=== PATIENT | male | born 1960 | race African-American/Black ===

== ENCOUNTER 2023-11-01 07:01 | Emergency (ER) | payer MEDICAID ==
[~2023-11-01] VITALS: Ht 175.3 cm; Wt 81.6 kg
[2023-11-01 07:12] VITALS: TEMP 98.1
[2023-11-01 09:36] VITALS: BP 129/80; O2SAT 99
== END 2023-11-01 09:37 | disposition home or self-care (01) ==
LOC: ER 07:08
DX: S30.1XXA Contusion of abdominal wall, initial encounter (principal); S00.81XA Abrasion of other part of head, initial encounter; R51.9 Headache, unspecified; Y08.89XA Assault by other specified means, initial encounter; Y93.89 Activity, other specified; Y92.89 Other specified places as the place of occurrence of the external cause; Y99.8 Other external cause status
CPT/HCPCS: 99284; 71250; 70450; 74176; A6403

== ENCOUNTER 2023-11-03 11:40 | Emergency (ER) | payer MEDICAID ==
[~2023-11-03] VITALS: Ht 175.3 cm; Wt 79.4 kg
[2023-11-03 11:57] VITALS: TEMP 98.1
--- NOTE | 2023-11-03 12:00 | NUR ---
REQUESING WOUND CHECK AND DRESSING CHANGE. FOREHEAD INJURY LAST FRIDAY
--- NOTE | 2023-11-03 13:10 | NUR ---
WOUND CARE DONE
--- NOTE | 2023-11-03 13:20 | NUR ---
Patient discharged to home in stable condition. Written and verbal after care instructions given. Patient verbalizes understanding of instruction.
[2023-11-03 13:21] VITALS: BP 127/79; O2SAT 94
== END 2023-11-03 13:22 | disposition home or self-care (01) ==
LOC: ER 11:46
DX: S00.81XD Abrasion of other part of head, subsequent encounter (principal); Z48.00 Encounter for change or removal of nonsurgical wound dressing; X58.XXXD Exposure to other specified factors, subsequent encounter

== ENCOUNTER 2024-03-22 13:21 | Emergency (ER) | payer MEDICAID, OTHER ==
[~2024-03-22] VITALS: Ht 175.3 cm; Wt 79.4 kg
[2024-03-22 18:27] LABS: BASOPHILS % (AUTO) 0.6 % (0.0-2.0); EOSINOPHILS # (AUTO) 0.2 K/uL (0.0-0.7); EOSINOPHILS % (AUTO) 3.3 % (0.0-6.0); HEMATOCRIT 42 % (39-51); HEMOGLOBIN 13.7 g/dL (13.5-17.5); LYMPHOCYTES # (AUTO) 1.6 K/uL (0.8-4.8); LYMPHOCYTES % (AUTO) 27.8 % (20.0-44.0); MEAN CORPUSCULAR HEMOGLOBIN 27 PG (26.0-33.0); MEAN CORPUSCULAR HGB CONC 33 g/dl (31.0-36.0); MEAN CORPUSCULAR VOLUME 81 fL (80-96); MONOCYTES # (AUTO) 0.5 K/uL (0.1-1.30); MONOCYTES % (AUTO) 8.7 % (2.0-12.0); NEUTROPHILS # (AUTO) 3.3 K/uL (1.8-8.9); NEUTROPHILS % (AUTO) 59.6 % (43.0-81.0); PLATELET COUNT (AUTO) 211 K/uL (150-450); RED BLOOD CELL COUNT(AUTO) 5.16 MIL/uL (4.5-6.0); RED CELL DISTRIBUTION WIDTH 15.2 % (11.5-15.0); WHITE BLOOD COUNT (AUTO) 5.6 K/uL (4.3-11.0)
[2024-03-22 18:34] LABS: CALCIUM, SERUM 9.2 mg/dL (8.5-10.1); POTASSIUM 4.4 mmol/L (3.5-5.1)
[2024-03-22 19:39] VITALS: BP 73/111; TEMP 97.9; O2SAT 99
== END 2024-03-22 19:46 | disposition home or self-care (01) ==
LOC: ER 13:35
DX: R10.32 Left lower quadrant pain (principal); Z60.2 Problems related to living alone
CPT/HCPCS: 36415; 80048-TC; 85025-TC

== ENCOUNTER 2024-04-06 15:36 | Emergency (ER) | payer OTHER ==
[~2024-04-06] VITALS: Ht 175.3 cm; Wt 81.6 kg
[2024-04-06 16:10] VITALS: BP 122/80; TEMP 98.3
[2024-04-06 17:08] VITALS: O2SAT 98
== END 2024-04-06 17:08 | disposition home or self-care (01) ==
LOC: ER 15:43
DX: R10.32 Left lower quadrant pain (principal); Z60.2 Problems related to living alone

== ENCOUNTER 2025-02-10 16:40 | Emergency (ER) | payer MEDICARE, OTHER | END 2025-02-10 16:58 | disposition left against medical advice (07) | LOC: ER 16:45 | DX: Z53.21 Procedure and treatment not carried out due to patient leaving prior to being seen by health care provider (principal) ==